=== PATIENT | male | born 2000 | race Two or more races ===

== ENCOUNTER → 2023-06-16 | Emergency (ER) | payer OTHER ==
[~2023-06-16] VITALS: Ht 190.5 cm; Wt 86.2 kg
[~2023-06-16] MED LIST: DEXAMETHASONE SODIUM PHOSPHATE 4 MG/ML VIAL IM STA; GENTAMICIN SULFATE 0.15 MG/DR DROPS 5ML OP STA; MEPERIDINE HCL/PF 25 MG/ML VIAL IM STA
== END | disposition home or self-care (01) ==
LOC: ER 08:24
DX: H92.01 Otalgia, right ear (principal); Z88.0 Allergy status to penicillin; Z91.018 Allergy to other foods
CPT/HCPCS: 96372; 99282; J1100; J3490